=== PATIENT | male | born 1980 | race Caucasian/White ===

== ENCOUNTER 2023-07-11 14:42 | Outpatient (REF) | payer OTHER, SELFPAY ==
--- NOTE | 2023-07-11 13:55 | SKI_PTH ---
PATIENT: JAMEE HOUSE LOC: [facility] U#:[id number] AGE/SX: 42/M ROOM: RE07/11/[address]: Issa Duarte MD : 1980 BED: DIS: 07/11/2023 SPEC #: [id number] RECD: 07/11/23 18:20 STATUS: LUIS FERNANDO RELacey #: [id number] AMELIE: 07/11/23 13:[address]: Issa Duarte DEPT: Surgical Specimen RECD BY: Stephanie Angeles ENTERED: 07/11/23 18:21 SP TYPE: [place] MCMAHAN DR: Padmini Bonilla Tissues: 1 - SKIN BIOPSY(SHAVE/PUNCH) Procedures: SKIN LEVEL 4 Comments: [id number]
== END 2023-07-11 14:43 | disposition home or self-care (01) ==
LOC: LBN 14:42
PROVIDERS: PCP Internal Medicine; Visit Provider Otolaryngology
DX: B07.8 Other viral warts (principal); L98.8 Other specified disorders of the skin and subcutaneous tissue
CPT/HCPCS: 88305